=== PATIENT | female | born 1975 | race Caucasian/White ===

== ENCOUNTER → 2018-07-11 10:36 | Outpatient (CLI) | payer BC, SELFPAY ==
[2018-07-14 15:18] LABS: HPV HC, High Risk Negative (Negative)
--- OUTSIDE RECORDS SUMMARY | 2018-10-12 23:37 | XMS RPT_ITS ---
:1975 Author Organization [facility] Care Team Providers Name Role Phone ADA SANDERS, DR. HOWE Attending Unavailable [facility] Rufina Puente Attending Unavailable PROBLEMS PROBLEMS DATE TYPE CONDITION / CODE ATTENDING STATUS SOURCE 07/11/2018 Unknown Z12.4 - Rufina Puente Active [facility] Encounter for Community screening for Hospital malignant Repository neoplasm of cervix / Z12.4(ICD-10) PROCEDURES PROCEDURES No Procedure Records FoundRESULTS RESULTS PAP I-G HPV HI Collected: 07/11/2018 Status: F Source: [facility] RISK 9:45 AM [facility] H[facility] REPOSITORY Order Comment: CYTOLOGY INFORMATION: - CLINICAL INFORMATION: - DATE LMP/MENOPAUSE: 06/22/18 LMP - COLLECTION VIAL: Thin Prep Vial - DOCK OPERATIONS SUPERVISOR SOURCE: CERVICAL/ENDOCERVICAL - COLLECTION TECHNIQUE: BRUSH/SPATULA Specimen Comment: [id number] Specimen Comment: Source.............Cervix;Endocervix Specimen Comment: LMP / Prev Treat...[id number] Specimen Comment: No. of containers..01 ThinPrep Vial TYPE CODE TESTS RESULT OUT OF RANGE REFERENCE UNITS LAB L7400.0800 . Normal DIAGN Comment Result Comment: NEGATIVE FOR INTRAEPITHELIAL LESION AND MALIGNANCY. LAB L7400.0900 . Normal ADEQ Comment Result Comment: Satisfactory for evaluation. Endocervical and/or squamous metaplastic cells (endocervical component) are present. LAB L7400.1400 . Normal PERFORM Comment Result Comment: Rhonda Weber, Full Fashioned Garment Knitter (ASCP) LAB L7400.2575 . Normal TEST METHOD Comment Result Comment: This liquid based ThinPrep(R) pap test was screened with the use of an image guided system. LAB L7400.2600 . Normal . COMM LAB L7400.2700 . Normal PAPSMR Comment Result Comment: The Pap smear is a screening test designed to aid in the detection of premalignant and malignant conditions of the uterine cervix. It is not a diagnostic procedure and should not be used as the sole means of detecting cervical cancer. Both false-positive and false-negative reports do occur. LAB L7400.2950 Negative Normal HPV Negative HC,HGH RISK Result Comment: This high-risk HPV test detects thirteen high-risk types (16/18/31/33/35/39/45/51/52/56/58/59/68) without differentiation. Performed at: - [facility] [id number] Budget Consultant: Carey Nguyen MD, Phone: [phone] Performed at: = - [facility] [id number] Budget Consultant: Carey Nguyen MD, Phone: [phone] Performed By: #### L7400.0375 #### [facility] (refer to report for specific site) refer to report for address and phone number MA MAMMOGRAM SCREENING Observed: 05/20/2018 Status: F Source: [facility] BILATERAL W/GRAHAM 9:30 AM [facility]ATION REPOSITORY ORIGINAL FROM: [facility] [address], [place] [address] PROCEDURE FOR: ROE ALEJANDRA [address] [place] [address] Home: PID#: [id number] Exam#: [id number] : 1975 Age: 42 TO: RUFINA PUENTE MD [address] [place], [place] [id number] #[id number] BILATERAL DIGITAL SCREENING MAMMOGRAM 3D/2D WITH CAD WITH MEDIOLATERAL OBLIQUE CRANIOCAUDAL: 05/20/2018 Comparison is made to exams dated: 05/17/2017 mammogram and 11/05/2015 mammogram - [facility]. The tissue of both breasts is heterogeneously dense. Current study was also evaluated with a Computer Aided Detection (CAD) system. There are benign calcifications in both breasts. No significant masses, calcifications, or other findings are seen in either breast. There has been no significant interval change. IMPRESSION: BENIGN There is no mammographic evidence of malignancy. A 1 year screening mammogram is recommended.(05/21/2019) YA GODFREY M.D. vfg/penrad:05/20/2018 16:21:22 Light Truck Driver(s): RT SHE (R)(M), [facility] letter sent: Normal BI-RADS 1&2 Mammogram BI-RADS: 2 Benign ALLERGIES ALLERGIES No Allergies Records FoundENCOUNTERS ENCOUNTERS ADMIT/DISCHARGE ACCOUNT NUMBER ADMITTING ENCOUNTER LOCATION SOURCE CLASS 07/11/2018 [id number] [facility] Rep[facility] 05/20/2018/05/20/20 [id number] Ambulatory [address] ding:RAD [facility] Repository PAYERS PAYERS ENCOUNTER GUARANTOR PAYER SUBSCRIBER SOURCE 07/11/2018 Audrey Locke Primary Audrey Cornelia Kavita [id number] [facility] y [place]: [id number] [id number] Repository [address]Jde: ([phone]) Date:[id number] [phone] () [id number], [place] [address]LI: 07/11/2018 Secondary NOT GIVENUNK [place] Insurance:SELF PAY [facility] Number: Effective Repository Date:2018-07-11 05/20/2018 ROE Rosario Primary [facility]: [facility]:REGINA ALEJANDRADOB: [facility] [id number] [facility] [id number] Repository [place] Number: [address] [place], [place] [id number] [address]~[id number] Date:2018-05-11 [id number]: [phone] [email or web address] MEDICINEel: [id number] [phone] Name:LUDIN ANGUIANO (HP)Tel: [phone]) (HP)Tel: [phone] [place] 0000000 (WP) [phone] () [phone]:
== END ==
PROVIDERS: Visit Provider Obstetrics & Gynecology
DX: Z12.4 Encounter for screening for malignant neoplasm of cervix (principal)
CPT/HCPCS: 87624; 88175; G0145

== ENCOUNTER 2021-09-04 09:13 | Outpatient (CLI) | payer BC, SELFPAY ==
[2021-09-09 15:17] LABS: HPV APTIMA, High Risk Negative (Negative)
== END 2021-09-04 23:59 | disposition home or self-care (01) ==
LOC: LABSPEC 09:19
PROVIDERS: Visit Provider Student in an Organized Health Care Education/Training Program
DX: Z12.4 Encounter for screening for malignant neoplasm of cervix (principal)
CPT/HCPCS: 87624; 88175; G0145